=== PATIENT | female | born 1995 | race Caucasian/White ===

== ENCOUNTER → 2018-04-15 | Outpatient (CLI) | payer OTHER ==
[~2018-04-15] MED LIST: ACE3 PO; AUGMENTIN; CIP500 PO; CYCL10TA29 PO; CYTOTEC PO; DENIES; IBU200 PO; IBU800 PO; LEVO1TAB PO; MET2 PO; NAPR220C12 PO; NORG1TAB95 PO; ORAJEL DT; PEN250 PO; TYLENOL WITH CODEINE PO; [UNRECOGNIZED DRUG - CODE] PO
--- NOTE | 2018-04-15 16:50 | RADIOLOGY IMAGING REPORT ---
FACILITY: [facility] PATIENT NAME: Medina Salas : 1995 MR: [id number] V: [id number] EXAM DATE: ORDERING PHYSICIAN: JAIDEN GARCIA TECHNOLOGIST: Location: [facility] - [place] Patient: Medina Salas : 1995 Visit/Account:[id number] Date of Sevice: 04/15/2018 EXAMINATION: Head CT without intravenous contrast History: Chronic headache TECHNIQUE: Contiguous axial images were obtained from the skull base to the vertex without intraven ous contrast. One of the following dose optimization techniques was utilized in the performance of th is exam: Automated exposure control; adjustment of the mA and/or kV according to the patient's size; or use of an iterative reconstruction technique. Specific details can be referenced in the facility 's radiology CT exam operational policy. COMPARISON STUDIES: none FINDINGS: Visualized mastoid air cells / paranasal sinuses: negative Calvarium and scalp: negative White matter: negative Dural venous sinuses / arterial structures: negative Ventricles / sulci / fissures: negative Masses / hemorrhage / midline shift: negative Extra-axial spaces: negative IMPRESSION: Normal head CT. No evidence of a mass, acute ischemia or hemorrhage. Report Dictated By: Franklin Whitfield MD at 04/15/2018 4:45 PM Report E-Signed By: Franklin Whitfield MD at 04/15/2018 4:47 PM WSN:[id number]
== END ==
LOC: CT 02:23
PROVIDERS: ATTEND Physician Assistant
DX: R51 Headache (principal)
CPT/HCPCS: 70450

== ENCOUNTER 2018-12-05 15:19 | Emergency (ER) | payer SELFPAY ==
--- NOTE | 2018-12-05 15:21 | ER Report ---
History and Physical Time Seen By MD: 15:20 HPI/ROS CHIEF COMPLAINT: Fever, cough, congestion body aches HISTORY OF PRESENT ILLNESS: Patient is a 23-year-old female who presents to the emergency department for evaluation of flulike symptoms began approximately 48 hours ago. Patient denies any known ill contacts. States that she feels generally rundown and weak is having subjective fevers. Also reports generalized headache and body aches. She also reports some sore throat. REVIEW OF SYSTEMS: Respiratory: No cough, no dyspnea. Cardiovascular: No chest pain, no palpitations. Gastrointestinal: No vomiting, no abdominal pain. Musculoskeletal: No back pain. Generalized body aches Neuro: Headache Allergies: Coded Allergies: No Known Drug Allergies (Verified , 12/05/18) Home Meds Active Scripts Oseltamivir Phosphate (TAMIFLU) 75 Mg Cap, 75 MG PO BID, #9 CAP 0 Refills Prov:ASIA TSANG MD 12/05/18 Reported Medications Butalbit/Acetamin/Caff/Codeine (UMHAFR-WLATGPCXATX-EICQ-CODEIN) 1 Each Capsule, 1-2 EACH PO Q6H PRN for HEADACHE, CAPSULE 12/05/18 Norethindrone (NORETHINDRONE) 0.35 Mg Tablet, 0.35 MG PO QDAY 12/05/18 Discontinued Reported Medications Norgestimate-Ethinyl Estradiol (ORTHO-CYCLEN) 1 Each Tablet, 1 EACH PO 07/17/14 Past Medical/Surgical History Noncontributory towards his chief complaint Hx Smoking: No Smoking Status: Never Smoker Hx Substance Use Disorder: No Hx Alcohol Use: No Constitutional Vital Sign - Last 24 Hours 12/05/18 12/05/18 12/05/18 12/05/18 15:19 15:24 15:26 15:30 Temp 100.3 Pulse 123 129 Resp 16 B/P (MAP) 149/97 (114) 149/97 131/84 (100) Pulse Ox 91 O2 Delivery Room Air 12/05/18 12/05/18 12/05/18 12/05/18 15:49 15:53 15:53 15:58 Pulse 120 119 121 Resp 18 18 Pulse Ox 94 94 O2 Delivery Room Air 12/05/18 12/05/18 12/05/18 16:00 16:19 16:30 Pulse 115 B/P (MAP) 110/83 (92) 129/96 (107) Pulse Ox 93 Physical Exam General Appearance: The patient is alert, has no immediate need for airway protection and no current signs of toxicity. Eyes: Pupils equal and round no injection. Respiratory: Chest is non tender, lungs are clear to auscultation. Cardiac: regular rate and rhythm Gastrointestinal: Abdomen is soft and non tender, no masses, bowel sounds normal. Musculoskeletal: Neck: Neck is supple and non tender. Extremities have full range of motion and are non tender. Skin: No rashes or lesions. Medical Decision Making Data Points Laboratory Hematology Test 12/05/18 15:39 Influenza Virus Type A (PCR) Positive (NEGATIVE) Influenza Virus Type B (PCR) Negative (NEGATIVE) Chemistry Test 12/05/18 15:39 Influenza Virus Type A (PCR) Positive (NEGATIVE) Influenza Virus Type B (PCR) Negative (NEGATIVE) ED Course/Re-evaluation ED Course 12/05/2018 4:45:55 pm influenza screen is positive for influenza A. Patient is within the window to treat and was prescribed Tamiflu 1st dose given in the emergency department. Decision to Disposition Date: Dec 05, 2018 Decision to Disposition Time: 16:45 Depart Departure Latest Vital Signs Vital Signs Date Time Temp Pulse Resp B/P (MAP) Pulse Ox O2 Delivery O2 Flow Rate FiO2 12/05/18 16:30 129/96 (107) 12/05/18 16:19 115 93 12/05/18 15:58 18 12/05/18 15:53 Room Air 12/05/18 15:26 100.3 Impression: Primary Impression: Influenza A Condition: Improved Disposition: HOME OR SELF-CARE New Scripts Oseltamivir Phosphate (TAMIFLU) 75 Mg Cap 75 MG PO BID, #9 CAP 0 Refills Prov: ASIA TSANG MD 12/05/18 Departure Forms: ER Transition Record, Medications Reconciliation, Off Work/School Form, School or Work Release?: Work Number of days to be released: 2 Patient Portal Information Patient Instructions: Influenza (DC) ASIA TSANG MD Dec 05, 2018 15:21
[2018-12-05] MEDS ORDERED: NORE0.352 PO (15:30)
[2018-12-05] MEDS ORDERED: BUTA1CAP7 PO (15:30)
[2018-12-05] MEDS ORDERED: ALBUTEROL/IPRATROPIUM 3 ML NEB NEB ONE (15:50)
[2018-12-05 16:30] VITALS: BP 129/96
[2018-12-05] MEDS ORDERED: OSE75 PO (16:47)
[2018-12-05] MEDS ORDERED: OSELTAMIVIR PHOS 75 MG CAP PO ONE (16:50)
--- NOTE | 2018-12-05 17:03 | RADIOLOGY IMAGING REPORT ---
FACILITY: [facility] - [place] PATIENT NAME: Medina Salas : 1995 MR: [id number] V: [id number] EXAM DATE: ORDERING PHYSICIAN: ASIA TSANG TECHNOLOGIST: Location: [facility] - [place] Patient: Medina Salas : 1995 Visit/Account:[id number] Date of Sevice: 12/05/2018 CHEST PA LAT COMPARISONS: None. ADDITIONAL PERTINENT HISTORY: Cough and chest pain since Wednesday. FINDINGS: Cardiomediastinal silhouette: Negative. Pulmonary vasculature: Negative. Lung coley: Negative. Pleural spaces: Negative. Osseous structures: Negative. Surrounding soft tissues: Negative. IMPRESSION: No evidence of acute cardiopulmonary disease. Report Dictated By: Froy Rubalcava MD at 12/05/2018 4:59 PM Report E-Signed By: Froy Rubalcava MD at 12/05/2018 4:59 PM WSN:[id number]
== END 2018-12-05 16:57 | disposition home or self-care (01) ==
LOC: ER 15:33
DX: J09.X2 Influenza due to identified novel influenza A virus with other respiratory manifestations (principal)
CPT/HCPCS: 71046; 87502; 94640; 99283; J7620